=== PATIENT | male | born 1955 | race Caucasian/White ===

== ENCOUNTER 2017-12-28 13:23 | Emergency (ER) | payer OTHER ==
[~2017-12-28] VITALS: Ht 185.4 cm; Wt 101.4 kg
[2017-12-28 13:27] VITALS: Ht 185.4 cm; Wt 101.4 kg
[2017-12-28] MEDS ORDERED: K-TAB10 MEQ PO (13:29)
[2017-12-28] MEDS ORDERED: ZOLOFT50 MG PO (13:29)
[2017-12-28] MEDS ORDERED: OMEPRAZOLE20 M1 PO (13:30)
[2017-12-28] MEDS ORDERED: OMEGA-3100 MG PO (13:31)
[2017-12-28] MEDS ORDERED: ASPIRIN EC81 M1 PO (13:31)
[2017-12-28 14:54] LABS: BASOPHILS 0.3 % (0-2); EOSINOPHILS 1.4 % (0-7); HEMATOCRIT 38.3 % (42.0-54.0); HEMOGLOBIN 13.7 g/dL (13.5-17.5); IMMATURE GRANULOCYTES 0.2 % (0-5); MCH 30.1 pg (26.0-34.0); MCHC 35.8 g/dL (31.0-37.0); MCV 84.2 fL (80.0-100.0); MEAN PLATELET VOLUME 10.2 fL (7.4-10.4); MONOCYTES 6.7 % (2-11); NEUTROPHILS 61.4 % (40-80); PLATELET COUNT 55 10x3/uL (130-400); RBC 4.55 10x6/uL (4.20-6.10); RDW 13.2 % (11.5-14.5); WBC 5.9 10x3/uL (4.8-10.8)
[2017-12-28 15:15] LABS: ALBUMIN 3.7 g/dL (3.4-5.0); ALKALINE PHOSPHATASE 46 U/L (46-116); ALT (SGPT) 33 U/L (10-68); BILIRUBIN - TOTAL 1.62 mg/dL (0.2-1.3); CALC OSMOLALITY 281 mosm/kg (275-300); CALCIUM 8.3 mg/dL (8.5-10.1); CARBON DIOXIDE 25.6 mmol/L (21.0-32.0); CHLORIDE - SERUM 106 mmol/L (98-107); CREATININE - SERUM 1.6 mg/dL (0.6-1.3); GLUCOSE 107 mg/dL (74-106); POTASSIUM - SERUM 3.8 mmol/L (3.5-5.1); PROTEIN - SERUM 6.7 g/dL (6.4-8.2); SODIUM 139 mmol/L (136-145); UREA NITROGEN 23 mg/dL (7-18); eGFR NON AFRICAN AMERICAN 47 mL/min (90-120)
[2017-12-28 15:23] LABS: CREATINE KINASE 178 UL (21-232); MAGNESIUM - SERUM 1.9 mg/dL (1.8-2.4); PRO BNP 181 pg/mL (0-125)
[2017-12-28 15:25] LABS: TROPONIN-I < 0.017 ng/mL (0.000-0.060)
[2017-12-28 15:41] LABS: PLATELET ESTIMATE DECREASED
[2017-12-29 00:30] VITALS: BP 110/56
== END 2017-12-29 00:31 | disposition other institution (70) ==
LOC: D.ER 13:23
PROVIDERS: Family Medicine
DX: R07.9 Chest pain, unspecified (principal); R00.1 Bradycardia, unspecified; R55 Syncope and collapse; I44.0 Atrioventricular block, first degree